=== PATIENT | female | born 1955 | race African-American/Black ===

== ENCOUNTER → 2016-11-05 | Outpatient (CLI) | payer OTHER ==
[~2016-11-05] MED LIST: ALDACTONE 25MG25 M1 PO; CRESTOR 10MG10 MG PO; DITROPAN 5MG TAB5 MG PO; GLUCOPHAGE1000 MG PO; JANUVIA50 MG PO; LOTREL 10 MG-401 CAP PO
== END ==
LOC: MC.RAD 08:15
DX: Z12.31 Encounter for screening mammogram for malignant neoplasm of breast (principal)

== ENCOUNTER → 2017-11-25 | Outpatient (CLI) | payer OTHER | LOC: MC.RAD 08:02 | DX: Z12.31 Encounter for screening mammogram for malignant neoplasm of breast (principal) ==